=== PATIENT | female | born 1985 | race Caucasian/White ===

== ENCOUNTER 2016-11-22 20:05 | Emergency (ER) | payer OTHER ==
[~2016-11-22] VITALS: Ht 165.1 cm; Wt 92.5 kg
[2016-11-22 20:14] VITALS: Ht 165.1 cm; Wt 92.5 kg
--- NOTE | 2016-11-22 23:20 | ERD ---
ER Documentation Chief Complaint Date/Time DATE: 11/22/16 TIME: 23:17 Chief Complaint vag bleeding x 5 months, denies HPI This 31-year-old female presents to emergency department with intermittent bleeding 5 months. Patient is bleeding now reports blood is bright red with clots. 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 Patient is a poor historian reports history of anxiety ROS All systems reviewed and are negative except as per history of present illness. Medications Home Meds Active Scripts Ibuprofen* (Motrin*) 400 Mg Tab, 400 MG PO Q6, #30 TAB Prov:CLINT MILLS 11/23/16 Allergies Allergies: Coded Allergies: No Known Allergy (Unverified , 11/22/16) Physical Exam Vitals Vital Signs Date Time Temp Pulse Resp B/P Pulse Ox O2 Delivery O2 Flow Rate FiO2 11/23/16 03:05 98.5 70 20 120/78 99 Room Air 11/22/16 20:14 98.4 89 20 136/63 99 Vitals stable, triage notes reviewed Physical Exam Const: [] Head: Atraumatic Eyes: Normal Conjunctiva ENT: Normal External Ears, Nose and Mouth. Neck: Full range of motion..~ No meningismus. Resp: Clear to auscultation bilaterally Cardio: Regular rate and rhythm, no murmurs Abd: Soft, non tender, non distended. Normal bowel sounds Skin: No petechiae or rashes Back: No midline or flank tenderness Ext: No cyanosis, or edema Neur: Awake and alert Psych: Normal Mood and Affect Result Diagram: 11/22/16 2350 11/22/16 2350 Results 24 hrs Laboratory Tests Test 11/22/16 23:50 11/22/16 23:52 White Blood Count 9.910^3/ul Red Blood Count 4.2510^6/ul Hemoglobin 12.5g/dl Hematocrit 38.0% Mean Corpuscular Volume 89.4fl Mean Corpuscular Hemoglobin 29.4pg Mean Corpuscular Hemoglobin Concent 32.9g/dl Red Cell Distribution Width 13.2% Platelet Count 92977^3/UL Mean Platelet Volume 10.4fl Neutrophils % 50.8% Lymphocytes % 37.4% Monocytes % 7.8% Eosinophils % 3.4% Basophils % 0.4% Nucleated Red Blood Cells % 0.0/100WBC Neutrophils # (Manual) 5.010^3/ul Lymphocytes # 3.710^3/ul Monocytes # 0.810^3/ul Eosinophils # 0.310^3/ul Basophils # 0.010^3/ul Nucleated Red Blood Cells # 0.010^3/ul Sodium Level 145mmol/L Potassium Level 4.0mmol/L Chloride Level 101mmol/L Carbon Dioxide Level 30mmol/L Anion Gap 18 Blood Urea Nitrogen 16mg/dl Creatinine 0.91mg/dl Glucose Level 96mg/dl Calcium Level 8.9mg/dl Total Bilirubin 0.0mg/dl Direct Bilirubin 0.00mg/dl Indirect Bilirubin 0.0mg/dl Aspartate Amino Transf (AST/SGOT) 22IU/L Alanine Aminotransferase (ALT/SGPT) 40IU/L Alkaline Phosphatase 79IU/L Total Protein 7.4g/dl Albumin 3.8g/dl Globulin 3.60g/dl Albumin/Globulin Ratio 1.05 Bedside Urine pH (LAB) 6.5 Bedside Urine Protein (LAB) 2+ Bedside Urine Glucose (UA) Negative Bedside Urine Ketones (LAB) Negative Bedside Urine Blood 3+ Bedside Urine Nitrite (LAB) Negative Bedside Urine Leukocyte Esterase (L Negative Current Medications Medications (Trade) Dose Ordered Sig/Good Route PRN Reason Start Time Stop Time Status Last Admin Dose Admin Ibuprofen (Motrin) 400 mg ONCE ONCE PO 11/22/16 23:30 11/22/16 23:31 DC 11/22/16 23:30 Interpretation text CBC shows no evidence of hemorrhage or infection Chemistry shows no evidence of significant electrolyte abnormalities or renal insufficiency Liver function tests shows no evidence of acute biliary or hepatic dysfunction Lipase shows no evidence of acute pancreatitis . Procedures/MDM This 31-year-old female presents to emergency department with vaginal bleeding intermittently 5 months, difficulty urinating and anxiety symptoms. Patient has been seen and has a plan of care implemented with primary mixing plant operator reports possible endometrial biopsy which she has not had done yet. Patient reports back pain, denies nausea, vomiting, fever, chills. [id number]. Today's treatment includes pain medication diagnostic testing and laboratory evaluation. Patient's laboratory findings are unremarkable for infection or acute blood loss no anemia. Electrolytes are unremarkable for imbalance, no renal insufficiency, no biliary or hepatitis noted. Urinalysis negative for leukocytosis and nitrates. Positive for hemoglobin as expected. Pelvic ultrasound with radiology interpretation as follows; mildly thickened endometrium with punctuated focus of blood flow on Doppler interrogation, findings probably reflecting blood clot but even equivocal for retained products of conception given the provided history. Clinical follow-up is recommended. No evidence of myometrial or endometrial mass. Sonographically normal ovaries. U hCG negative for evidence of . Patient is stable with no new complaints during ER course, clinically there is no current evidence to suggest meningitis, sepsis, acute abdomen,or any other emergent condition appearing to require further evaluation or hospitalization. I feel the patient is stable for discharge at this time. I have discussed results, examination findings, the treatment plan with the patient and family present prior to discharge. Indications for emergent reevaluation, side effects of medication were also discussed. All questions were answered. Patient verbalizes understanding and agrees with plan of care. Departure Diagnosis: Primary Impression: DUB (dysfunctional uterine bleeding) Condition: Good Patient Instructions: Dysfunctional Uterine Bleeding Additional Instructions: Thank you for for coming to [facility] for your care today. Please ask your nurse or provider if you have questions about your care today and do not leave until all your questions have been answered. Please use any medications given as directed and follow-up with your doctor (or the doctor you were referred to) in the next 2-3 days. If you do not have a primary care doctor you may follow up at the [facility] (listed below). You may also use motrin and tylenol as needed for fever and/or pain unless instructed otherwise by your provider or nurse. Indications for more urgent follow-up have been discussed, but you may return to the Emergency Department at ANY time for any worrisome or worsening symptoms. If you have abdominal pain, please know that no test or exam you received is perfect and you should follow up within 8 hours for continued pain. If you had any imaging studies today, such as an X-Ray or CT Scan, these studies will be reviewed later by a radiologist. You will be called if there are important findings that were not identified today, so make sure the contact information you provided at registration is correct. If you received any narcotic pain control medicine today, such as Vicodin, Morphine or Dilaudid, your coordination and judgment may be affected for a number of hours. Please do not drive or operate heavy machinery, and you may want someone to assist you at home. If you were given a prescription for narcotic medication, be aware that it is very addictive- use sparingly and only if necessary. CLINT MILLS Nov 22, 2016 23:20
[2016-11-22] MEDS ORDERED: IBUPROFEN 200 MG TAB PO ONE (23:30)
[2016-11-22 23:46] LABS: URINE BLOOD (Dip) POC 3+ (NEGATIVE)
--- NOTE | 2016-11-23 00:44 | RADRPT ---
PROCEDURE: US Pelvis. CLINICAL INDICATION: Vaginal bleeding. Possible miscarriage TECHNIQUE: Multiple sonographic images of the pelvis were obtained utilizing a transabdominal and endovaginal technique. The images were reviewed on a PACS workstation. COMPARISON: None available FINDINGS: Uterus: Normal in size, contour and echogenicity with no evidence for myometrial masses. Size is est imated at 5.9 x 4.6 x 3.1 cm. Cervix: No abnormalities of significance are seen. Endometrium: Mildly increased in thickness; 14.8 mm. Tiny punctate focus of blood flow on Doppler i nterrogation is suggested Right ovary / adnexa: Normal in size estimated at 4 x 2.6 x 2.1 cm. No evidence for masses, normal blood flow on Doppler interrogation. Left ovary/adnexa: Normal in size estimated at 3.7 x 2.3 x 2.1 cm. No evidence for solid masses, no rmal blood flow on Doppler interrogation. Cul-de-sac: No evidence of free fluid. RPTAT:HJJR IMPRESSION: 1. Mildly thickened endometrium with punctate focus of blood flow on Doppler interrogation, finding s probably reflecting blood clot but equivocal for retained products of conception given the provide d history. Clinical follow-up is recommended. 2. No evidence of myometrial or endometrial mass. 3. Sonographically normal ovaries. Physician Enoc Date Time Electronically viewed and signed by Physician Enoc on 11/23/2016 00:43 /
[2016-11-23 00:56] LABS: BASOPHILS % 0.4 % (0.0-2.0); EOSINOPHILS # 0.3 10^3/ul (0.0-0.5); EOSINOPHILS % 3.4 % (0.0-7.0); HEMOGLOBIN 12.5 g/dl (12.0-16.0); LYMPHOCYTES # 3.7 10^3/ul (0.8-2.9); LYMPHOCYTES % 37.4 % (15.0-51.0); MEAN CORPUSCULAR HEMOGLOBIN 29.4 pg (29.0-33.0); MEAN CORPUSCULAR HGB CONC 32.9 g/dl (32.0-37.0); MEAN CORPUSCULAR VOLUME 89.4 fl (82.0-101.0); MEAN PLATELET VOLUME 10.4 fl (7.4-10.4); MONOCYTE # 0.8 10^3/ul (0.3-0.9); MONOCYTES % 7.8 % (0.0-11.0); NEUTROPHILS % 50.8 % (39.0-77.0); PLATELET COUNT 353 10^3/UL (140-415); RED BLOOD COUNT 4.25 10^6/ul (4.20-5.40); RED CELL DISTRIBUTION WIDTH 13.2 % (11.5-14.5); WHITE BLOOD COUNT 9.9 10^3/ul (4.8-10.8)
[2016-11-23 01:14] LABS: ALBUMIN 3.8 g/dl (3.3-4.9); ALBUMIN/GLOBULIN RATIO 1.05; CALCIUM 8.9 mg/dl (8.4-10.2); CREATININE 0.91 mg/dl (0.44-1.00); TOTAL PROTEIN 7.4 g/dl (6.1-8.1)
[2016-11-23] MEDS ORDERED: IBUP400T22 PO (02:37)
[2016-11-23 03:05] VITALS: BP 120/78; PULSE 70; RESP 20; TEMP 98.5
== END 2016-11-23 03:06 | disposition home or self-care (01) ==
LOC: FTE 20:05
DX: N93.8 Other specified abnormal uterine and vaginal bleeding (principal); R10.2 Pelvic and perineal pain
CPT/HCPCS: 76830; 76856; 80053; 81003; 85025; Z7502; Z7610

== ENCOUNTER 2018-08-03 12:43 | Emergency (ER) | payer OTHER ==
[~2018-08-03] VITALS: Wt 93.2 kg
[~2018-08-03 12:43] MED LIST: IBUP-1561 PO
[2018-08-03 12:47] VITALS: RESP 18
[2018-08-03] MEDS ORDERED: ACET500C5 PO (14:36)
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
[2018-08-03 15:28] VITALS: BP 118/67; PULSE 76
== END 2018-08-03 15:28 | disposition home or self-care (01) ==
LOC: FTE 12:43
DX: O26.892 Other specified pregnancy related conditions, second trimester (principal); R10.9 Unspecified abdominal pain; Z3A.19 19 weeks gestation of pregnancy
CPT/HCPCS: 76805; 81003; 81025; Z7502

== ENCOUNTER 2018-09-29 06:00 | Outpatient (CLI) | payer OTHER ==
[~2018-09-29] VITALS: Ht 162.6 cm; Wt 99.1 kg
[~2018-09-29 06:00] MED LIST changes: +ACET500C5 PO
[2018-09-29 06:26] VITALS: BP 101/60; PULSE 98; RESP 16
[2018-09-29] MEDS ORDERED: PREN-19 PO (06:29)
--- NOTE | 2018-09-29 08:50 | TRIAGE ---
OB Triage Datetime Report Generated by CPN: 09/29/2018 08:50 Datetime: 09/29/2018 08:45 Stage of : OB Triage Maternal Assessment Level of Consciousness: Keenly Alert, Responsive DTR's/Clonus: DTRs 1+ Headache: Denies Breath Sounds, Left: Clear and Equal Breath Sounds, Right: Clear and Equal Nausea/Vomiting: Denies RUQ Epigastric Pain: Denies Labor Evaluation Frequency: NONE Monitor Mode: External Resting Tone [place]: Relaxed Heart Rate FHR Baseline Rate: 140 Monitor Mode: External US Variability: Marked >25 bpm Accelerations: 10X10 Decelerations: None Category: Category I Pain Assessment Pain Scale: 0 Pain Presence: None/Denies Pain Type: N/A Pain Goal: 3 Vaginal Exam Membrane Status: Intact Datetime: 09/29/2018 07:54 Maternal Assessment Level of Consciousness: Keenly Alert, Responsive DTR's/Clonus: DTRs 1+ Headache: Denies Blurred Vision: No Respiratory Effort: Unlabored Breath Sounds, Left: Clear and Equal Breath Sounds, Right: Clear and Equal Nausea/Vomiting: Denies RUQ Epigastric Pain: Denies Facial Edema: None Labor Evaluation Frequency: NONE Monitor Mode: External Resting Tone [place]: Relaxed Heart Rate FHR Baseline Rate: 140 Monitor Mode: External US Variability: Marked >25 bpm Accelerations: 10X10 Decelerations: None Category: Category I Pain Assessment Pain Scale: 0 Pain Presence: None/Denies Pain Type: N/A Pain Goal: 3 Vaginal Exam Membrane Status: Intact Datetime: 09/29/2018 06:39 Stage of : OB Triage Monitor Mode: External Quality: Mild Resting Tone [place]: Relaxed Heart Rate FHR Baseline Rate: 145 Monitor Mode: External US Datetime: 09/29/2018 06:21 EGA: 27.6 Vaginal Exam Membrane Status: Intact Datetime: 09/29/2018 06:15 Time of Arrival: 09/29/2018 05:53 Arrived By: Ambulatory Arrived From: Home Chief Complaint: c/o rt side pain 7/10 "off and on for 4 days tegan when lying down", yellow dis charge and severe vag itching x 3 days, occas numbness and tingling in arms, and DFM x3 days Movement: Decreased Contractions: Denies/Absent Rupture of Membranes: Denies Vaginal Bleeding: None Vaginal Discharge: Present Recent Sexual Intercouse: Denies Abdominal Trauma: Not Applicable Patient Complaints: Other Time Provider Notified: 09/29/2018 06:30 Provider Notified: Dr Stearns Initial Plan: EFM, UA,CVL,EFW,BPP,CBC,CMP Datetime: 09/29/2018 06:14 Stage of : OB Triage Maternal Assessment Level of Consciousness: Keenly Alert, Responsive Headache: Denies Blurred Vision: No Respiratory Effort: Unlabored Nausea/Vomiting: Denies RUQ Epigastric Pain: Denies Facial Edema: None Monitor Mode: External Resting Tone [place]: Relaxed Heart Rate FHR Baseline Rate: 145 Monitor Mode: External US Pain Assessment Pain Scale: 7 Pain Presence: Intermittent Pain Type: Sharp; Stabbing Pain Location: Abdomen
--- NOTE | 2018-09-29 09:02 | PN ---
Triage Information Date/Time Subjective: 33 year-old G 2 P 0 at 27.6 weeks gestation presents with complaints of right-sided pain, vaginal discharge, decreased movement. Objective: Vitals: 101/60 General: No apparent distress Abdomen: Gravid SVE: Deferred Extremities: Nontender to palpation Physical profile: 10/30 Assessment/Plan: 1. Decreased movement-reassuring biophysical profile follow-up with primary OB 2. Vaginal discharge-wet mount. Patient to follow up with results. 3. Leukocyte esteraseurine culture pending. Patient to call and follow-up with urine culture results Disposition: discharge to home Reason for visit: DFM Weeks of Gestation 27.6 /Para 2/0 Objective Vital Signs Date Temp Pulse Resp B/P (MAP) Pulse Ox O2 O2 Flow FiO2 Time Delivery Rate 09/29/18 97.8 98 16 101/60 Room Air 06:26 (74) Results/Medications Result Diagram: 09/29/18 0657 09/29/18 0657 Results 24 hrs Laboratory Tests Test 09/29/18 06:10 09/29/18 06:57 Urine Color YELLOW Urine Clarity SLIGHTLY CLOUDY A Urine pH 5.0 Urine Specific [place] 1.027 Urine Ketones NEGATIVE Urine Nitrite NEGATIVE Urine Bilirubin NEGATIVE Urine Urobilinogen NEGATIVE Urine Leukocyte Esterase 3+ H Urine Microscopic RBC 4 Urine Microscopic WBC 9 H Urine Squamous Epithelial Cells FEW Urine Bacteria FEW A Urine Mucus FEW A Urine Hemoglobin NEGATIVE Urine Glucose NEGATIVE Urine Total Protein NEGATIVE White Blood Count 8.1 Red Blood Count 3.54 L Hemoglobin 11.0 L Hematocrit 32.1 L Mean Corpuscular Volume 90.7 Mean Corpuscular Hemoglobin 31.1 Mean Corpuscular Hemoglobin Concent 34.3 Red Cell Distribution Width 13.3 Platelet Count 263 # Mean Platelet Volume 10.1 Immature Granulocytes % 1.000 H Neutrophils % 62.0 Lymphocytes % 24.8 Monocytes % 10.0 Eosinophils % 2.0 Basophils % 0.2 Nucleated Red Blood Cells % 0.0 Immature Granulocytes # 0.080 H Neutrophils # 5.0 Lymphocytes # 2.0 Monocytes # 0.8 Eosinophils # 0.2 Basophils # 0.0 Nucleated Red Blood Cells # 0.0 Sodium Level 140 Potassium Level 3.9 Chloride Level 109 Carbon Dioxide Level 25 Anion Gap 6 Blood Urea Nitrogen 11 Creatinine 0.51 Est Glomerular Filtrat Rate mL/min > 60 Glucose Level 98 Calcium Level 8.9 Total Bilirubin 0.3 Direct Bilirubin 0.00 Indirect Bilirubin 0.3 Aspartate Amino Transf (AST/SGOT) 56 H Alanine Aminotransferase (ALT/SGPT) 130 H Alkaline Phosphatase 68 Total Protein 6.7 Albumin 3.2 L Globulin 3.50 H Albumin/Globulin Ratio 0.91 MARLON MARTE MD Sep 29, 2018 09:02
== END 2018-09-29 08:56 | disposition home or self-care (01) ==
LOC: OBT 06:00 → L-D 06:00 → OBT 08:56
PROVIDERS: ATTEND Obstetrics & Gynecology
DX: O36.8120 Decreased fetal movements, second trimester, not applicable or unspecified (principal); Z3A.27 27 weeks gestation of pregnancy
CPT/HCPCS: 76815; 76817; 76818; 80053; 81001; 85025; Z7500; G0463